=== PATIENT | female | born 1960 | race Caucasian/White ===

== ENCOUNTER 2021-07-08 16:10 | Inpatient (IN) | payer OTHER ==
[~2021-07-08] VITALS: Ht 160 cm; Wt 88.1 kg
[~2021-07-08 16:10] MED LIST: B-12 100 MCG; COZAAR100 MG PO; OSCAL 500 TAB500 MG PO; PERCOCET 325 MG1 TA2 PO; SENOKOT S 50 MG1 TAB PO; VITAMIN D 1001000 IU PO; VITAMINC1000TA PO
[2021-07-08 17:11] LABS: BASO # 0.1 K/mm3 (0.0-0.2); BASO % 0.7 % (0.0-2.0); EOS # 0.1 K/mm3 (0.0-0.7); EOS % 0.8 % (0.0-4.0); GRAN # 5.7 K/mm3 (1.4-6.5); GRAN % 59.2 % (42.2-75.2); HEMATOCRIT 42.4 % (37.0-47.0); HEMOGLOBIN 13.8 g/dl (12.5-16.0); LYMPH # 3.2 K/mm3 (1.2-3.4); LYMPH % 33.6 % (20.0-51.0); MEAN CELL VOLUME 81 fl (80.0-100.0); MEAN CORPUSCULAR HEMOGLOBIN 27 pg (27-31); MEAN CORPUSCULAR HGB CONC 33 g/dl (33.0-37.0); MONO # 0.5 K/mm3 (0.1-0.6); MONO % 5.5 % (1.7-9.3); PLATELET COUNT 435 K/mm3 (130-400); RED BLOOD COUNT 5.21 M/mm3 (4.10-5.30); REDCELL DISTRIBUTION WIDTH-CV 13.6 % (11.5-14.5)
[2021-07-08 17:20] LABS: ALBUMIN 4.1 gm/dL (3.4-4.8); BILIRUBIN,TOTAL 0.5 mg/dL (0.2-1.2); CALCIUM 9.3 mg/dL (8.4-10.2); CREATININE, serum 0.73 mg/dL (0.57-1.11); POTASSIUM 3.7 mmol/L (3.5-4.5); TOTAL PROTEIN 8.1 gm/dL (6.2-8.1)
[2021-07-08 17:26] LABS: TROPONIN-I 0.012 ng/mL (0.00-0.033)
[2021-07-08 19:05] LABS: INR 1.3 (0.8-3.0)
[2021-07-08 19:07] LABS: PARTIAL THROMBOPLASTIN TIME 31.3 SECONDS (26.0-37.0)
[2021-07-08] MEDS ORDERED: CARDIZEM LA120 MG PO (19:30)
[2021-07-08] MEDS ORDERED: LANOXIN 0.120.125 MG PO (19:30)
[2021-07-08] MEDS ORDERED: ELIQUIS 5MG PO (19:30)
[2021-07-08 19:54] LABS: MAGNESIUM 2.1 mg/dL (1.6-2.6); PHOSPHOROUS 3.6 mg/dL (2.3-4.7)
[2021-07-08 20:44] VITALS: BP 136/84; PULSE 130; TEMP 98
[2021-07-09] VITALS (15 sets, daily range): BP systolic 96–124; BP diastolic 68–94; PULSE 73–117; TEMP 98.1–98.6
[2021-07-09 06:19] LABS: BASO % 0.6 % (0.0-2.0); EOS # 0.1 K/mm3 (0.0-0.7); EOS % 1.6 % (0.0-4.0); GRAN # 3.9 K/mm3 (1.4-6.5); GRAN % 55.8 % (42.2-75.2); LYMPH # 2.5 K/mm3 (1.2-3.4); LYMPH % 34.8 % (20.0-51.0); MEAN CELL VOLUME 81 fl (80.0-100.0); MEAN CORPUSCULAR HGB CONC 32 g/dl (33.0-37.0); MEAN PLATELET VOLUME 9.6 fl (7.4-10.4); MONO # 0.5 K/mm3 (0.1-0.6); MONO % 7.1 % (1.7-9.3); PLATELET COUNT 341 K/mm3 (130-400); RED BLOOD COUNT 4.31 M/mm3 (4.10-5.30); REDCELL DISTRIBUTION WIDTH-CV 13.7 % (11.5-14.5)
[2021-07-09 06:21] LABS: MEAN CORPUSCULAR HEMOGLOBIN 26 pg (27-31)
[2021-07-09 06:22] LABS: HEMOGLOBIN 11.3 g/dl (12.5-16.0)
[2021-07-09 06:33] LABS: CALCIUM 8.3 mg/dL (8.4-10.2); CHOLESTEROL RISK RATIO 2.7; CREATININE, serum 0.61 mg/dL (0.57-1.11); POTASSIUM 3.7 mmol/L (3.5-4.5)
[2021-07-09] MEDS ORDERED: ZEBETA 5MG5 MG PO (13:08)
[2021-07-09] MEDS ORDERED: TAMBOCOR 1100 MG/TAB PO (13:18)
== END 2021-07-09 15:30 | disposition home or self-care (01) | DRG 309 ==
LOC: EDBD 16:10 → COL.ER 16:10 → MEDICAL 18:37
PROVIDERS: Nurse Practitioner Family; Student in an Organized Health Care Education/Training Program; ADMIT Internal Medicine
PROC: 5A2204Z Restoration of Cardiac Rhythm, Single (ICD-10-PCS; principal; 2021-07-08)
PROC: B24BZZ4 Ultrasonography of Heart with Aorta, Transesophageal (ICD-10-PCS; 2021-07-08)
DX: I48.91 Unspecified atrial fibrillation (principal); E87.2 Acidosis; D75.839 Thrombocytosis, unspecified; Z20.822 Contact with and (suspected) exposure to COVID-19; Z87.891 Personal history of nicotine dependence; Z23 Encounter for immunization
CPT/HCPCS: 99222-AI; 99232-AI; 99239; J2704; J3010